=== PATIENT | male | born 1955 ===

== ENCOUNTER → 2017-07-11 15:55 | Outpatient (CLI) | payer SELFPAY ==
[2017-07-11 19:33] LABS: BASOPHILS 0.5 % (0-2); HEMATOCRIT 35.3 % (42.0-54.0); HEMOGLOBIN 10.8 g/dL (13.5-17.5); IMMATURE GRANULOCYTES 0.4 % (0-5); LYMPHOCYTES 12.8 % (15-50); MCH 28.5 pg (26.0-34.0); MCHC 30.6 g/dL (31.0-37.0); MCV 93.1 fL (80.0-100.0); MEAN PLATELET VOLUME 10.2 fL (7.4-10.4); MONOCYTES 8.7 % (2-11); NEUTROPHILS 75.6 % (40-80); PLATELET COUNT 374 10x3/uL (130-400); RBC 3.79 10x6/uL (4.20-6.10); RDW 15.1 % (11.5-14.5); WBC 9.4 10x3/uL (4.8-10.8)
== END | disposition home or self-care (01) ==
LOC: D.LABREF 15:55
DX: Z48.811 Encounter for surgical aftercare following surgery on the nervous system (principal)

== ENCOUNTER → 2017-07-18 12:44 | Outpatient (CLI) | payer SELFPAY ==
[2017-07-18 13:36] LABS: BASOPHILS 0.4 % (0-2); EOSINOPHILS 1.7 % (0-7); HEMATOCRIT 48.6 % (42.0-54.0); IMMATURE GRANULOCYTES 0.2 % (0-5); LYMPHOCYTES 18.5 % (15-50); MCHC 32.9 g/dL (31.0-37.0); MCV 91.2 fL (80.0-100.0); MEAN PLATELET VOLUME 10.3 fL (7.4-10.4); MONOCYTES 5.8 % (2-11); NEUTROPHILS 73.4 % (40-80); RBC 5.33 10x6/uL (4.20-6.10); WBC 8.2 10x3/uL (4.8-10.8)
[2017-07-18 13:37] LABS: PLATELET COUNT 271 10x3/uL (130-400)
== END | disposition home or self-care (01) ==
LOC: D.LABREF 12:44
DX: B96.5 Pseudomonas (aeruginosa) (mallei) (pseudomallei) as the cause of diseases classified elsewhere (principal)

== ENCOUNTER → 2017-07-26 12:19 | Outpatient (CLI) | payer SELFPAY ==
[2017-07-26 13:10] LABS: BASOPHILS 0.5 % (0-2); HEMATOCRIT 37.3 % (42.0-54.0); HEMOGLOBIN 11.6 g/dL (13.5-17.5); IMMATURE GRANULOCYTES 0.4 % (0-5); MCH 28.2 pg (26.0-34.0); MCHC 31.1 g/dL (31.0-37.0); MCV 90.8 fL (80.0-100.0); MEAN PLATELET VOLUME 9.7 fL (7.4-10.4); MONOCYTES 6.6 % (2-11); NEUTROPHILS 72.5 % (40-80); RBC 4.11 10x6/uL (4.20-6.10); WBC 8.3 10x3/uL (4.8-10.8)
[2017-07-26 13:19] LABS: PLATELET COUNT 363 10x3/uL (130-400)
== END | disposition home or self-care (01) ==
LOC: D.LABREF 12:19
PROVIDERS: Internal Medicine
DX: T81.4XXA Infection following a procedure, initial encounter (principal)

== ENCOUNTER → 2017-08-01 14:25 | Outpatient (CLI) | payer SELFPAY | END | disposition home or self-care (01) | LOC: D.LABREF 14:25 | DX: T81.4XXA Infection following a procedure, initial encounter (principal) ==